=== PATIENT | male | born 1945 | race Caucasian/White ===

== ENCOUNTER 2018-01-21 06:57 | Day surgery (SDC) | payer MEDICARE ==
[2008-05-26 09:06] VITALS: BP 128/81
[~2018-01-21] VITALS: Ht 167.6 cm; Wt 72.4 kg
[~2018-01-21 06:57] MED LIST: ADVIL200 MG PO; CATAFLAM50 MG PO; IBUPROFEN 200200 MG PO; NO HOME MEDICATIONS; ZYLOPRIM 300MG300 MG PO
[2018-01-21 07:26] VITALS: BP 141/88; PULSE 72; TEMP 97.7
[2018-01-21 10:30] VITALS: BP 116/75; PULSE 58; TEMP 97.2
[2018-01-21 10:45] VITALS: BP 121/74; PULSE 58
[2018-01-21 11:00] VITALS: BP 128/74; PULSE 57
[2018-01-21 11:15] VITALS: BP 126/68; PULSE 55
== END 2018-01-21 12:05 | disposition home or self-care (01) ==
LOC: SDCO 06:57
DX: K60.3 Anal fistula (principal); I10 Essential (primary) hypertension; Z90.79 Acquired absence of other genital organ(s); Z88.5 Allergy status to narcotic agent; Z88.2 Allergy status to sulfonamides; Z85.46 Personal history of malignant neoplasm of prostate; Z80.52 Family history of malignant neoplasm of bladder; Z80.42 Family history of malignant neoplasm of prostate; Z83.3 Family history of diabetes mellitus
CPT/HCPCS: J0690; J1100; J1885; J2250; J2405; J2704; J3010; J7120

== ENCOUNTER 2018-03-18 08:30 | Outpatient (RCR) | payer MEDICARE | END 2018-03-18 11:35 | disposition home or self-care (01) | LOC: WSPT 08:30 | DX: M25.512 Pain in left shoulder (principal); M25.561 Pain in right knee; W01.198D Fall on same level from slipping, tripping and stumbling with subsequent striking against other object, subsequent encounter | CPT/HCPCS: G8984-GP; G8985-GP; G8986-GP ==

== ENCOUNTER 2018-09-01 13:30 | Outpatient (RCR) | payer MEDICARE | END 2018-11-27 | LOC: WSPT | DX: M75.52 Bursitis of left shoulder (principal) ==

== ENCOUNTER → 2019-11-12 | Outpatient (CLI) | payer MEDICARE | LOC: COL.RAD 12:03 | DX: F03.90 Unspecified dementia, unspecified severity, without behavioral disturbance, psychotic disturbance, mood disturbance, and anxiety (principal); I66.11 Occlusion and stenosis of right anterior cerebral artery ==

== ENCOUNTER 2020-02-10 13:00 | Outpatient (RCR) | payer MEDICARE | END 2020-02-15 | disposition home or self-care (01) | LOC: WSST | DX: G31.84 Mild cognitive impairment of uncertain or unknown etiology (principal); G44.82 Headache associated with sexual activity; Z85.46 Personal history of malignant neoplasm of prostate ==

== ENCOUNTER 2020-05-04 11:15 | Outpatient (RCR) | payer MEDICARE | END 2020-05-09 | disposition home or self-care (01) | LOC: WSST | DX: G31.84 Mild cognitive impairment of uncertain or unknown etiology (principal); R41.3 Other amnesia ==

== ENCOUNTER 2020-07-06 14:45 | Outpatient (RCR) | payer MEDICARE | END 2020-08-10 | disposition home or self-care (01) | LOC: WSST | DX: G31.84 Mild cognitive impairment of uncertain or unknown etiology (principal); G44.82 Headache associated with sexual activity ==

== ENCOUNTER 2023-12-14 11:23 | Emergency (ER) | payer MEDICARE ==
[~2023-12-14] VITALS: Ht 180.3 cm; Wt 72.7 kg
[2023-12-14 11:42] VITALS: TEMP 98.6
[2023-12-14] MEDS ORDERED: Ondansetron 4 MG/2 ML VIAL IV ONE (12:00)
[2023-12-14] MEDS ORDERED: Ketorolac 15 MG/ML VIAL IV ONE (12:00)
[2023-12-14] MEDS ORDERED: NS 1,000 ML IV ONE (12:00)
[2023-12-14 12:43] LABS: ALBUMIN 3.9 g/dL (3.4-4.8); BASO # 0.1 K/mm3 (0.0-0.2); BASO % 0.8 % (0.0-2.0); BILIRUBIN,TOTAL 0.6 mg/dL (0.2-1.2); CALCIUM 9.8 mg/dL (8.4-10.2); CREATININE, serum 2.38 mg/dL (0.72-1.25); EOS # 0.1 K/mm3 (0.0-0.7); EOS % 0.6 % (0.0-4.0); GRAN # 9.9 K/mm3 (1.4-6.5); GRAN % 67.6 % (42.2-75.2); HEMOGLOBIN 17.9 g/dl (13.5-18.0); LYMPH # 3.7 K/mm3 (1.2-3.4); LYMPH % 25.3 % (20.0-51.0); MEAN CELL VOLUME 92 fl (80.0-100.0); MEAN CORPUSCULAR HEMOGLOBIN 31 pg (27-31); MEAN CORPUSCULAR HGB CONC 33 g/dl (33.0-37.0); MEAN PLATELET VOLUME 10.7 fl (7.4-10.4); MONO # 0.7 K/mm3 (0.1-0.6); MONO % 4.5 % (1.7-9.3); PLATELET COUNT 293 K/mm3 (130-400); POTASSIUM 4.4 mEq/L (3.5-4.5); RED BLOOD COUNT 5.87 M/mm3 (4.20-5.60); REDCELL DISTRIBUTION WIDTH-CV 14.6 % (11.5-14.5); TOTAL PROTEIN 7.7 g/dl (6.2-8.1)
[2023-12-14 12:50] LABS: PH 5.5 (5.0-8.5); URINE APPEARANCE Cloudy (CLEAR/HAZY); URINE COLOR YELLOW (YELLOW); URINE PROTEIN(semi-quant) TRACE (NEGATIVE)
[2023-12-14 12:51] LABS: URINE BLOOD 3+ (NEGATIVE); URINE GLUCOSE Negative (NEGATIVE); URINE KETONE TRACE (NEGATIVE); URINE NITRATE Negative (NEGATIVE)
[2023-12-14 12:53] LABS: COLLECTION METHOD CLEAN CATCH
[2023-12-14] MEDS ORDERED: FLOMAX 0.40.4 MG/CAP PO (14:03)
[2023-12-14] MEDS ORDERED: PERCOCET 325 MG1 TA2 PO (14:03)
[2023-12-14] MEDS ORDERED: ZOFRAN ODT4 MG PO (14:03)
[2023-12-14 14:12] VITALS: BP 114/86; PULSE 54
== END 2023-12-14 14:18 | disposition home or self-care (01) ==
LOC: COL.ER 11:23
PROVIDERS: Personal Emergency Response Attendant
DX: N20.1 Calculus of ureter (principal); N28.9 Disorder of kidney and ureter, unspecified; Z87.442 Personal history of urinary calculi
CPT/HCPCS: J1885; J2405; J7030